=== PATIENT | female | born 1960 | race Caucasian/White ===

== ENCOUNTER → 2019-05-23 | Outpatient (CLI) | payer OTHER | LOC: YCFC.O 12:44 | PROVIDERS: ATTEND Nurse Practitioner | DX: N10 Acute pyelonephritis (principal) ==

== ENCOUNTER → 2019-06-12 | Outpatient (CLI) | payer OTHER ==
--- NOTE | 2019-06-12 11:54 | RAD ---
EXAM DESCRIPTION: Foot,Left 3 Views CLINICAL HISTORY: FOOT PAIN COMPARISON: None Available. TECHNIQUE: AP, LATERAL, AND OBLIQUE radiographs of the left foot were obtained. FINDINGS: The visualized bones appear well mineralized. No acute fracture or dislocation. The soft tissues appear grossly unremarkable. Minimal degenerative changes identified in the first metatarsophalangeal joint. Small plantar calcaneal spur. 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 Plantar calcaneal spur. Electronically signed by: Hellen Lutz MD 06/12/2019 11:52 AM CDT
--- NOTE | 2019-06-12 11:55 | RAD ---
EXAM DESCRIPTION: KUB CLINICAL HISTORY: 58 years Female, RIGHT FLANK PAIN COMPARISON: None. TECHNIQUE: 1 view of the abdomen was performed. FINDINGS: Multiple air distended bowel loops are identified with no evidence of bowel obstruction. Moderate amount of fecal material is identified. No abnormal calcifications are noted. IMPRESSION: Constipation. No radiographic evidence of acute intra-abdominal process. Electronically signed by: Hellen Lutz MD 06/12/2019 11:52 AM CDT
== END ==
LOC: YCFC.O 09:32
PROVIDERS: ATTEND Nurse Practitioner
DX: K59.00 Constipation, unspecified (principal); M19.072 Primary osteoarthritis, left ankle and foot; M77.32 Calcaneal spur, left foot; R22.42 Localized swelling, mass and lump, left lower limb; R53.83 Other fatigue

== ENCOUNTER → 2019-06-18 | Outpatient (CLI) | payer OTHER ==
--- NOTE | 2019-06-18 12:02 | US ---
EXAM DESCRIPTION: Venous,Lower Extremity LT: ULTRASOUND. CLINICAL HISTORY: D DIMER ABOVE REFERENCE RANGE COMPARISON: None Available. TECHNIQUE: Bangura-scale and doppler sonographic evaluation of the deep venous system of the left lower extremity. FINDINGS: Doppler evaluation shows normal color flow and normal phasicity and augmentation of the left common femoral vein, femoral vein, popliteal vein, greater/lesser saphenous vein, peroneal, and posterior tibial vein. The left lower extremity deep veins were completely compressible; normal occlusion with transducer pressure. Bangura-scale survey showed no echogenic thrombus within these veins. IMPRESSION: 1. Duplex ultrasound evaluation of the left lower extremity deep venous system showing no evidence of thrombosis. Electronically signed by: Gabino Mackey MD 06/18/2019 12:00 PM CDT
== END ==
LOC: US 08:05
PROVIDERS: ATTEND Nurse Practitioner
DX: R79.1 Abnormal coagulation profile (principal)

== ENCOUNTER → 2020-02-12 | Outpatient (CLI) | payer OTHER ==
--- NOTE | 2020-02-13 07:53 | RAD ---
EXAM DESCRIPTION: Chest x-ray,2 Views CLINICAL HISTORY: paroxysmal hypertension COMPARISON: None TECHNIQUE: PA/lateral FINDINGS: Heart size is normal with normal pulmonary vascularity. No pleural effusion or pneumothorax. Wedgelike atelectasis overlies the mid T-spine on lateral view. On the frontal view, minimal discoid atelectasis in the lung bases. Linear scarring in the lingula. Lateral view shows intact sternum and T-spine. IMPRESSION: No consolidating infiltrate. Electronically signed by: Adan Diaz MD 02/13/2020 7:52 AM CDT
== END ==
LOC: YCFC.O 17:09
PROVIDERS: ATTEND Nurse Practitioner
DX: I15.9 Secondary hypertension, unspecified (principal); R79.89 Other specified abnormal findings of blood chemistry

== ENCOUNTER → 2020-04-21 | Outpatient (CLI) | payer OTHER | LOC: YCFC.O 11:30 | PROVIDERS: ATTEND Nurse Practitioner | DX: D72.824 Basophilia (principal); R17 Unspecified jaundice ==

== ENCOUNTER → 2020-05-05 | Outpatient (CLI) | payer OTHER ==
--- NOTE | 2020-05-05 13:11 | RAD ---
EXAM DESCRIPTION: Foot,Left 3 Views CLINICAL HISTORY: PAIN IN LEFT FOOT COMPARISON: None Available. TECHNIQUE: AP, LATERAL, AND OBLIQUE FINDINGS: The visualized bones appear poorly mineralized. No acute fracture or dislocation. Mild osteoarthritis of the first metatarsophalangeal joint. Plantar calcaneal spur. The soft tissues appear grossly unremarkable. IMPRESSION: Mild osteoarthritis of the first metatarsophalangeal joint. Plantar calcaneal spur. Electronically signed by: Hellen Lutz MD 05/05/2020 1:10 PM CDT
== END ==
LOC: RAD 10:21
PROVIDERS: ATTEND Family Medicine
DX: M19.072 Primary osteoarthritis, left ankle and foot (principal); M77.32 Calcaneal spur, left foot

== ENCOUNTER → 2020-05-14 | Outpatient (CLI) | payer OTHER | LOC: YCFC.O 10:07 | PROVIDERS: ATTEND Nurse Practitioner | DX: E80.6 Other disorders of bilirubin metabolism (principal) ==

== ENCOUNTER → 2020-09-30 | Outpatient (CLI) | payer OTHER ==
--- NOTE | 2020-10-01 09:38 | RAD ---
EXAM DESCRIPTION: KUB CLINICAL HISTORY: 60 years Female, RIGHT FLANK PAIN COMPARISON: None. Findings: 1 view(s)/radiograph(s) Location: abdomen Nonobstructive bowel gas pattern. No suspicious calcification. No acute osseous abnormalities. Soft tissues are unremarkable. Moderate stool volume. Upper abdomen is not included. Pelvic phleboliths. IMPRESSION: Nonobstructive bowel gas pattern. Electronically signed by: Anthony Rosa MD 10/01/2020 9:37 AM [employer]
== END ==
LOC: LAB 10:36
PROVIDERS: ATTEND Nurse Practitioner Family
DX: R10.9 Unspecified abdominal pain (principal)